=== PATIENT | female | born 1985 | race Caucasian/White ===

== ENCOUNTER 2021-01-01 15:21 | Emergency (ER) | payer OTHER, SELFPAY ==
[2021-01-01 15:29] VITALS: BP 115/69; PULSE 93; RESP 16; TEMP 36.4; O2SAT 98
--- NOTE | 2021-01-01 15:52 | ED.URI ---
HPI - URI/Sore Throat General Chief Complaint: Upper Respiratory Infection Stated Complaint: Ear Pain,Sore Throat Time Seen by Provider: 01/01/21 16:05 Source: patient and RN notes reviewed Mode of arrival: ambulatory Limitations: no limitations History of Present Illness HPI Narrative: 35-year-old female presents concern for sore throat, rhinorrhea, nasal congestion, ear pain, swollen lymph nodes. Reports symptoms started yesterday. Reports he has been taking DayQuil with little relief. Reports she has been vaccinated for Covid. Denies other known sick contacts. Reports her daughter goes to daycare and recently had a similar illness. She denies fever, body aches, chills, sweats. Reports occasional cough. MD elicited complaint: sore throat and rhinorrhea Related Data Allergies Allergy/AdvReac Type Severity Reaction Status Date / Time shellfish derived Allergy Intermediate swelling Verified 01/01/21 15:29 Noman Allergy Intermediate swelling Uncoded 01/01/21 15:29 Review of Systems Review of Systems: CONSTITUTIONAL: Denies malaise, chills, sweats, or fever. EYES: Denies visual changes, redness, or discharge. ENT: Reports rhinorrhea, congestion, otalgia and sore throat. CARDIOVASCULAR: Denies chest pain, palpitations, or edema. RESPIRATORY: Reports cough. Denies dyspnea. GASTROINTESTINAL: Denies abdominal pain, nausea, vomiting, diarrhea SKIN: Denies rash or itching. MUSCULOSKELETAL: Denies myalgia. NEUROLOGIC: Denies headache. All systems reviewed & are unremarkable except as noted in HPI and below PMFSH Past Medical History Medical History BMI 21.0-21.9, adult delivery delivered JACKIE (generalized anxiety disorder) JACKIE (generalized anxiety disorder) IUD (intrauterine device) in place Surgical History Surgical History History of tonsillectomy Family History Family History Father Diabetes mellitus Hypertension Family history of elevated blood lipids Mother Depression Sibling No problems noted. 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 There is no relevant family history pertinent to the presenting complaint Exam Narrative: GENERAL: Nontoxic-appearing, well-nourished, and in no acute distress. HEAD: Normocephalic EYES: PERRLA, conjunctivae clear ENT: Nares clear, clear discharge. Mucous membranes moist. TM pearly osborne with sharp light reflex bilaterally; no tragal tenderness. Oropharynx mildly erythematous without lesions. Tonsils enlarged and without exudate, no drooling, no hoarseness, no trismus, uvula midline. NECK: Supple. No lymphadenopathy CHEST: Clear to auscultation, breath sounds equal. No wheezing, rhonchi, rales, or stridor. No respiratory distress, speaks in full sentences. HEART: Regular rate and rhythm. No murmur heard. SKIN: Warm, dry, no rash. NEURO: Alert and oriented x3. PSYCH: Normal mood and affect Course Course Emergency Course: Patient is aware of diagnosis, understands and agrees to treatment plan. Anticipatory guidance given. Patient agrees to follow-up as directed and is aware of reasons to seek care at the emergency department. Portions of this record may have been created with voice recognition software Vital Signs Vital signs: Vital Signs Temperature 97.5 F L 01/01/21 15:29 Pulse
== END 2021-01-01 16:35 | disposition home or self-care (01) ==
PROVIDERS: Emergency Provider Nurse Practitioner; PCP Family Medicine
DX: J06.9 Acute upper respiratory infection, unspecified (principal); Z20.822 Contact with and (suspected) exposure to COVID-19; F17.210 Nicotine dependence, cigarettes, uncomplicated; F41.1 Generalized anxiety disorder
CPT/HCPCS: 87081; 87880; 99213; G0463

== ENCOUNTER → 2021-01-02 08:00 | Outpatient (CLI) | payer OTHER, SELFPAY ==
[2021-01-02 20:20] LABS: SARS-CoV-2 RNA PCR Negative
== END ==
PROVIDERS: PCP Family Medicine; Visit Provider Nurse Practitioner
DX: J06.9 Acute upper respiratory infection, unspecified (principal); Z20.822 Contact with and (suspected) exposure to COVID-19
CPT/HCPCS: C9803; U0003; U0005

== ENCOUNTER 2022-07-07 13:34 | Emergency (ER) | payer OTHER, SELFPAY ==
[2022-07-07 13:48] VITALS: BP 116/75; PULSE 103; RESP 16; TEMP 37.2; O2SAT 99
--- NOTE | 2022-07-07 14:08 | ED.URI ---
HPI - URI/Sore Throat General Chief Complaint: Upper Respiratory Infection Stated Complaint: bodyache,sore throat Time Seen by Provider: 07/07/22 14:08 Source: patient, RN notes reviewed and old records reviewed Mode of arrival: ambulatory Limitations: no limitations History of Present Illness HPI Narrative: 37 year old female with complaints of sore throat and swollen glands since yesterday with some body aches and fatigue. Patient reports that she has had cough which statarted this morning. Patient reports that she is unsure of any fevers but did have chills and sweats during the night, Patient has taken some Tylenol for her discomfort. Patient reports no known ill contacts. MD elicited complaint: sore throat and other (bodyaches) Onset (ago): day(s) (day 2 of symptoms) Pain scale (0-10): 4 Able to tolerate fluids by mouth: Yes Exacerbating factors: swallowing Treatments prior to arrival: acetaminophen Related Data Allergies Allergy/AdvReac Type Severity Reaction Status Date / Time shellfish derived Allergy Intermediate swelling Verified 07/07/22 14:03 Noman Allergy Intermediate swelling Uncoded 07/07/22 14:03 Review of Systems Review of Systems: CONSTITUTIONAL: Denies malaise, chills, sweats, or fever. EYES: Denies visual changes, redness, or discharge. ENT: Reports rhinorrhea, congestion, sinus pain,no otalgia positive for sore throat CARDIOVASCULAR: Denies chest pain, palpitations, or edema. RESPIRATORY: Reports cough starting this morning.? Denies dyspnea. GASTROINTESTINAL: Denies abdominal pain, nausea, vomiting, diarrhea SKIN: Denies rash or itching. MUSCULOSKELETAL: Reports some myalgia. NEUROLOGIC: Denies headache. All systems reviewed & are unremarkable except as noted in HPI and below PMFSH Past Medical History Medical History Abnormal Pap smear of cervix 11/09/15 lgsil (+) hpv; 10/15/14; lgsil (+) hpv , 06/04/2007 ascus 2005 ascus, 05/11/2005 ascus hpv+, 06/07/05 ECC - lgsil, mild dysplasia, CHANTAL I, 08/29/05 ascus hpv +, 05/10/06 ascus, hpv +,11/09/2015-lgsil mild dyplasia+hpv; 03/06/17 ascus (+) hpv, 08/04/2018 +hpv ; 09/05/2020 +HPV BMI 20.0-20.9, adult BMI 21.0-21.9, adult delivery delivered Encounter for IUD insertion 04/25/18 Esme insertion JACKIE (generalized anxiety disorder) JACKIE (generalized anxiety disorder) 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 There is no relevant family history pertinent to the presenting compl
== END 2022-07-07 14:18 | disposition home or self-care (01) ==
PROVIDERS: Emergency Provider Registered Nurse; PCP Family Medicine
DX: J02.0 Streptococcal pharyngitis (principal); Z87.891 Personal history of nicotine dependence
CPT/HCPCS: 87880; 99213; G0463

== ENCOUNTER 2023-07-10 11:17 | Emergency (ER) | payer OTHER, SELFPAY ==
[2023-07-10 11:52] VITALS: BP 107/83; PULSE 109; RESP 16; TEMP 36.8; O2SAT 100
--- NOTE | 2023-07-10 12:19 | ED.URI ---
HPI - URI/Sore Throat General Chief Complaint: Upper Respiratory Infection Stated Complaint: BODY ACHES/SWOLLEN GLANDS/FEVER Time Seen by Provider: 07/10/23 11:55 Source: patient Mode of arrival: ambulatory Limitations: no limitations History of Present Illness HPI Narrative: 38-year-old female presents with complaint of sore throat, headache, swollen glands breath, fatigue, fever, body aches for 4 days. Patient reports history of strep multiple times. Denies nausea vomiting diarrhea. All systems reviewed and negative except as noted above. Related Data Home Medications Medication Instructions Recorded Confirmed levonorgestrel 21 mcg/24 hours (8 1 device intrauterine ONCE 05/15/23 07/10/23 yrs) 52 mg intrauterine device (Mirena) Allergies Allergy/AdvReac Type Severity Reaction Status Date / Time shellfish derived Allergy Intermediate swelling Verified 07/10/23 11:45 Noman Allergy Intermediate swelling Uncoded 07/10/23 11:45 Review of Systems Review of Systems: CONSTITUTIONAL: Reports fever, chills, or sweats. EYES: Denies visual changes, redness, or discharge. ENT: Denies rhinorrhea, congestion. Reports sore throat. Denies otalgia. CARDIOVASCULAR: Denies chest pain, palpitations, or edema. RESPIRATORY: Denies cough or dyspnea. GASTROINTESTINAL: Denies abdominal pain, nausea, vomiting, or diarrhea. GENITOURINARY: Denies dysuria or hematuria. SKIN: Denies rash or itching. MUSCULOSKELETAL: Denies back pain, joint pain. Reports myalgia. NEUROLOGIC: Denies headache, numbness, or weakness. PSYCHIATRIC: Denies anxiety or depression. All other systems reviewed are negative, except as documented in HPI. [facility] Past Medical History Medical History (Updated 07/10/23 @ 12:18 by Gaby Mcelroy NP) Abnormal Pap smear of cervix 11/09/15 lgsil (+) hpv; 10/15/14; lgsil (+) hpv , 06/04/2007 ascus 2005 ascus, 05/11/2005 ascus hpv+, 06/07/05 ECC - lgsil, mild dysplasia, CHANTAL I, 08/29/05 ascus hpv +, 05/10/06 ascus, hpv +,11/09/2015-lgsil mild dyplasia+hpv; 03/06/17 ascus (+) hpv, 08/04/2018 +hpv ; 09/05/2020 +HPV BMI 20.0-20.9, adult BMI 21.0-21.9, adult delivery delivered Encounter for IUD insertion 04/25/18 Esme insertion Encounter for screening examination for sexually transmitted disease JACKIE (generalized anxiety disorder) JACKIE (generalized anxiety disorder) 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 IUD (intrauterine device) in place Remove/insert IUD Surgical History Surgical History (Updated 05/15/23 @ 08:21 by Alysha Carrion Ovi) History of 03/08/18 primary c/s--failure to dilate History of colposcopy with cervical biopsy 06/07/05 LGSIL, mild dyplasia, CHANTAL I 11/07/05 ECC--squamous atypia 05/10/06 ECC--insufficient, hpv+ 06/04/07 ECC--benign 12/06/07 ECC--insufficient 11/10/14 chronic cervicitis 01/25/16 benign History of gynecological procedure (05/15/23) esme iud removal and Mirena iud insertion History of tonsillectomy (~1996) Family History Family History Father Diabetes mellitus Hypertension Family history of elevated blood lipids Mother Depression Sibling No problems noted. 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
== END 2023-07-10 12:23 | disposition home or self-care (01) ==
PROVIDERS: Emergency Provider Nurse Practitioner Family; PCP Family Medicine
DX: J02.0 Streptococcal pharyngitis (principal); Z20.822 Contact with and (suspected) exposure to COVID-19; Z87.891 Personal history of nicotine dependence
CPT/HCPCS: 87081; 87147; 87426; 87804; 87880; 99213; G0463

== ENCOUNTER 2024-01-11 12:37 | Emergency (ER) | payer OTHER, SELFPAY ==
--- NOTE | ~2024-01-11 | XR_ITS ---
XR foot RT min 3V 01/11/2024 13:44 INDICATION: Laceration to the foot PROCEDURE: 3 views right foot COMPARISON: No prior studies for comparison. FINDINGS: Fracture, dislocation or subluxation is not identified. The soft tissues appear within norm al limits. No foreign bodies are identified. IMPRESSION: 1: NO ACUTE BONE OR JOINT ABNORMALITY IDENTIFIED. Reviewed, dictated and finalized at location B.
--- NOTE | ~2024-01-11 | XR_ITS ---
XR hand LT min 3V 01/11/2024 13:44 INDICATION: Left hand pain PROCEDURE: 3 views left hand COMPARISON: No prior studies for comparison. FINDINGS: Fracture, dislocation or subluxation is not identified. The soft tissues appear within norm al limits. No foreign bodies are identified. IMPRESSION: 1: NO ACUTE BONE OR JOINT ABNORMALITY IDENTIFIED. Reviewed, dictated and finalized at location B.
[2024-01-11 12:43] VITALS: BP 114/76; PULSE 95; RESP 14; TEMP 36.4; O2SAT 100
--- NOTE | 2024-01-11 14:58 | ED.WOUNDLAC ---
HPI - Wound/Laceration General Chief Complaint: Wound/Laceration Stated Complaint: glass door fell on pt (lacs) Time Seen by Provider: 01/11/24 14:07 Source: patient Mode of arrival: ambulatory Limitations: no limitations History of Present Illness HPI narrative: This is a 38-year-old female that presents to the emergency department after an injury today with multiple lacerations. Reports her shower door was off of the tracks. She attempted to move it and it shattered. She sustained lacerations to her bilateral hands and feet. She is not up-to-date on tetanus vaccination. Denies decreased range of motion or numbness. Related Data Home Medications Medication Instructions Recorded Confirmed levonorgestrel 21 mcg/24 hr (up to 1 device intrauterine ONCE 05/15/23 07/10/23 8 years) 52 mg intrauterine device (Mirena) Allergies Allergy/AdvReac Type Severity Reaction Status Date / Time shellfish derived Allergy Intermediate swelling Verified 10/22/23 07:41 Maiden Allergy Intermediate swelling Uncoded 10/22/23 07:41 Review of Systems Review of Systems: CONSTITUTIONAL: Denies fever SKIN: Reports laceration NEUROLOGIC: Denies numbness All systems reviewed & are unremarkable except as noted in HPI and below PMFSH Past Medical History Medical History Abnormal Pap smear of cervix 11/09/15 lgsil (+) hpv; 10/15/14; lgsil (+) hpv , 06/04/2007 ascus 2005 ascus, 05/11/2005 ascus hpv+, 06/07/05 ECC - lgsil, mild dysplasia, CHANTAL I, 08/29/05 ascus hpv +, 05/10/06 ascus, hpv +,11/09/2015-lgsil mild dyplasia+hpv; 03/06/17 ascus (+) hpv, 08/04/2018 +hpv ; 09/05/2020 +HPV delivery delivered Encounter for IUD insertion 04/25/18 Esme insertion Encounter for screening examination for sexually transmitted disease JACKIE (generalized anxiety disorder) JACKIE (generalized anxiety disorder) 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 IUD (intrauterine device) in place Remove/insert IUD Surgical History Surgical History History of 03/08/18 primary c/s--failure to dilate History of colposcopy with cervical biopsy 06/07/05 LGSIL, mild dyplasia, CHANTAL I 11/07/05 ECC--squamous atypia 05/10/06 ECC--insufficient, hpv+ 06/04/07 ECC--benign 12/06/07 ECC--insufficient 11/10/14 chronic cervicitis 01/25/16 benign History of gynecological procedure (05/15/23) esme iud removal and Mirena iud insertion History of tonsillectomy (~1996) Family History Family History Father Diabetes mellitus Hypertension Family history of elevated blood lipids Mother Depression Sibling No problems noted. 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 HEAD: Normocephalic, atraumatic. EYES: EOMI. EXTREMITIES: Normal range of motion. Mild bruising to the left hand dorsal surface with 1.5 irregular laceration into subcutaneous tissue. Right foot with 2, 2cm irregular lacerations to the dorsal surface into subcutaneous tissue. Additional 1.5cm linear laceration into subcutaneous tissue to the right fo
[2024-01-11] MEDS: TETANUS,DIPHTHERIA,AC PERTUSSIS ADULT (0.5 ML) BOOSTRIX IM (15:01)
[2024-01-11 16:59] VITALS: BP 115/70; PULSE 58; RESP 16
== END 2024-01-11 17:00 | disposition home or self-care (01) ==
PROVIDERS: Emergency Provider Physician Assistant; PCP Family Medicine
DX: S61.412A Laceration without foreign body of left hand, initial encounter (principal); S91.311A Laceration without foreign body, right foot, initial encounter; Z23 Encounter for immunization; Z87.891 Personal history of nicotine dependence; W25.XXXA Contact with sharp glass, initial encounter
CPT/HCPCS: 12002; 73130; 73630; 90471; 90715; 99284

== ENCOUNTER 2025-02-23 11:14 | Outpatient (CLI) | payer OTHER, SELFPAY ==
--- NOTE | ~2025-02-23 | MM_ITS ---
EXAMINATION: MM screening swetha BI w giorgio HISTORY: Screening. TECHNIQUE: Craniocaudal and mediolateral oblique 3-D tomosynthesis images were obtained and synthetic 2-D images were generated. CAD analysis was submitted and interpreted. COMPARISON: None available. BREAST PARENCHYMAL COMPOSITION: Dense: The breasts are extremely dense FINDINGS: No suspicious masses are seen. There are no suspicious calcifications. No unexplained architectural distortion is seen. There are no skin or nipple abnormalities identified. There is no adenopathy seen on the images submitted. IMPRESSION: No mammographic evidence to suggest malignancy is seen. The patient may return to screening mammography as per ACR guidelines. BI-RADS 1 - Negative. Reviewed, dictated and finalized at location B. UP MAN
== END 2025-02-23 11:15 | disposition home or self-care (01) ==
PROVIDERS: PCP Family Medicine; Visit Provider Obstetrics & Gynecology
DX: Z12.31 Encounter for screening mammogram for malignant neoplasm of breast (principal)
CPT/HCPCS: 77063; 77067